=== PATIENT | female | born 1945 | race Caucasian/White ===

== ENCOUNTER 2016-07-24 03:05 | Emergency (ER) | payer MEDICARE ==
[~2016-07-24] VITALS: Ht 165.1 cm; Wt 132.4 kg
[~2016-07-24 03:05] MED LIST: AMLO5TAB PO; CARV25TA28 PO; GLIM2TAB26 PO; METF-200 PO; PITA2TAB PO; TOLT4CAP12 PO; TRIA1CAP35 PO; [UNRECOGNIZED DRUG - CODE] PO
[2016-07-24 03:17] VITALS: TEMP 97.9; Ht 165.1 cm; Wt 132.4 kg
--- NOTE | 2016-07-24 03:31 | NUR ---
DR SCHULTZ INTO SEE PT AT THIS TIME.
[2016-07-24] MEDS ORDERED: LORAZEPAM 2 MG/ML INJECTION IV ONE (03:45)
--- NOTE | 2016-07-24 03:46 | ERPDOC ---
Departure Disposition Decision Date: Jul 24, 2016 Disposition Decision Time: 04:42 Disposition: 01 DISCHARGED HOME, SELF-CARE Impression Impression Impression: Primary Impression: Anxiety Additional Impression: Hypertension Hypertension type: essential hypertension Qualified Codes: I10 - Essential ( primary) hypertension Severity: Severe Condition: Improved Seen By: Physician only Referrals: VIRGINIA GREGORY DO (PCP) Patient Instructions: Anxiety (ED), Hypertension (ED) Problems/Meds/Labs Reviewed?: Yes Medications reviewed and manag: Yes Additional Instructions: Take your routine medications as prescribed Call Dr. Gregory's office later today Follow up care ordered?: Yes Mental Status: Alert HPI - General Medical General Chief Complaint: Hypertension Stated Complaint: H BP Time Seen by Provider: 03:19 Source: patient, family Exam Limitations: no limitations HPI - General Medical Initial Comments For the past 24-36 hours the patient has felt generalized nervousness and multiple somatic complaints including elevated blood pressure that she associates with her anxiety attacks in the past. Patient has not had problems with her anxiety for over a year, but states this is the way she felt when they' ve really flared up in the past. Occurred At: home Onset: Gradual Duration: 12-24 hrs Severity: moderate Associated Symptoms: malaise, DENIES: chest pain, cough, diaphoresis, fever/ chills, headaches, loss of appetite, nausea/vomiting, rash, seizure, shortness of breath, syncope, weakness Hx of Similar Symptoms: Yes Allergies: Coded Allergies: No Known Allergies (Unverified , 07/24/16) Past History Past Medical History Metabolic: hypertension Psychological: anxiety Surgical History Denies Surgeries Social History Smoking Status: Never smoker Does patient use chewing tobac: No Second Hand Exposure: No Substance Use Type: does not use Alcohol Intake: none Record Review Pertinent history updated: Yes Review of Systems Constitutional Constitutional: DENIES: appetite decrease, appetite increase, chills, dizziness , fever, weakness ENMT Ears: DENIES: pain Hearing: DENIES: hearing loss, tinnitus Balance: DENIES: vertigo Sinuses: congestion, rhinorrhea Mouth/Throat: DENIES: change in swallowing, change in voice, hoarsness, painful swallowing, sore throat Cardiovascular Cardiac: DENIES: chest pain, dyspnea on exertion Rhythm/Rate: DENIES: irregular beat, palpitations, tachycardia Vascular: DENIES: pedal edema Pulmonary Respiratory: DENIES: cough, dyspnea, pleuritic chest pain GI Upper Abdomen: DENIES: dysphagia, heartburn/indigestion, nausea, pain, vomiting Lower Abdomen: DENIES: blood in stool, constipation, diarrhea, pain General: DENIES: burning, dysuria, frequency, pain, urgency Musculoskeletal General: DENIES: cramps, joint pain, joint swelling, pain, weakness Integumentary Skin: DENIES: rash, sores Neurological General: DENIES: headache, numbness, tingling, vertigo, weakness Psychiatric Psychiatric: anxiety, nervousness Physical Exam General General Nourishment: well nourished, well developed, appears stated age, no acute distress General Body Habitus: well groomed Vitals and Pain Weight: Kilograms: Height (feet): Height (inches): Triage Pain Scale: RN VS reviewed by Provider: Yes Comments Patient appears moderately anxious, with mild flight of ideas Normal Exams: Head: Normocephalic w/o trauma Eyes: Pupils are PERRLA w/ EOMI, No scleral icterus, irritation, or foreign bodies noted ENMT: No facial trauma, nasal exudates, pharyngeal erythema, or exudates are noted Neck: Full range of motion, without adenopathy, JVD, bruits or thyromegaly Chest/Resp: Clear all huber, with good airflow, and symmetry bilaterally CV: Regular rate and rhythm, without murmur or gallop, Pulses 2+ all extremities, capillary refill, <2 seconds all ext., no pedal edema noted Abdomen: Bowel sounds positive, soft, non-tender, non-distended, no hepatosplenomegaly, masses or bruits noted Lymphatic: No lymphadenopathy, or lymphedema noted Musculoskeletal: No tenderness, or deformity noted, good range of motion, all extremities Integumentary: No rashes, hives, or bruising noted, hair and nails, without abnormality Neurologic: Patient is alert, and oriented, cranial nerves, motor/sensory/ cerebellar, exams w/o gross deficits, to observation Psychiatric: Patient exhibits, appropriate attention, emotion and affect Progress Results/Orders Orders Procedure Category Date Status Time Iv Lock (Ed Only) EDM 07/24/16 Transmitted 03:34 Cbc W/Auto LAB 07/24/16 Complete Diff-Reflex Manual Cmp - Comprehensive LAB 07/24/16 Complete Metabolic Lorazepam (Ativan) PHA 07/24/16 Complete 03:45 Lab Results Laboratory Tests Test 07/24/16 03:56 White Blood Count 7.7T/MM3 Red Blood Count 4.55M/MM3 Hemoglobin 13.9GM/DL Hematocrit 42.6% Mean Corpuscular Volume 93.6UM3 Mean Corpuscular Hemoglobin 30.5UUG Mean Corpuscular Hemoglobin Concent 32.6GM/DL RDW Standard Deviation 42.8FL Platelet Count 188T/MM3 Mean Platelet Volume 10.6UM3 Immature Granulocyte % (Auto) 0.1% Neutrophils (%) (Auto) 61.6% Lymphocytes (%) (Auto) 29.2% Monocytes (%) (Auto) 5.4% Eosinophils (%) (Auto) 3.4% Basophils (%) (Auto) 0.3% Absolute Immature Granulocyte (auto 0.01T/MM3 Absolute Neutrophils (auto) 4.7T/MM3 Absolute Lymphocytes (auto) 2.2T/MM3 Absolute Monocytes (auto) 0.4T/MM3 Absolute Eosinophils (auto) 0.3T/MM3 Absolute Basophils (auto) 0.0T/MM3 Turbidity < 20 Sodium Level 144MEQ/L Potassium Level 4.2MEQ/L Chloride Level 103MEQ/L Carbon Dioxide Level 25MEQ/L Anion Gap 16MEQ/L Blood Urea Nitrogen 24.0MG/DL Creatinine 0.9MG/DL Glomerular Filtration Rate Calc 62 BUN/Creatinine Ratio 27RATIO Glucose Level 176MG/DL Calculated Osmolality 285MOSM/KG Calcium Level 9.7MG/DL Total Bilirubin 0.70MG/DL Icterus Index < 2 Aspartate Amino Transf (AST/SGOT) 28U/L Alanine Aminotransferase (ALT/SGPT) 38U/L Alkaline Phosphatase 83U/L Total Protein 7.4G/DL Albumin 4.2G/DL Globulin 3.2G/DL Albumin/Globulin Ratio 1.3RATIO Chemistry Specimen Hemolysis < 15 Medications Current ED Medications Lorazepam (Ativan) 1 mg O ONCE IV Last administered on 07/24/16t 04:05; Start 07/24/16 at 03:45; Stop 07/24/16 at 03:46; Status DC Progress Progress Initial blood pressure was elevated Patient given Ativan 1 mg IV - to relief of anxiety CBC - n CMP - n Subsequent blood pressures improving, however the patient's systolic blood pressure was still elevated at 203 on dismissal. Patient is going to take one additional Coreg at home, and called Dr. Gregory later today for recheck RENEE SCHULTZ MD Jul 24, 2016 03:46
--- NOTE | 2016-07-24 03:52 | NUR ---
LAB AT BEDSIDE FOR BLOOD DRAW.
[2016-07-24 04:06] LABS: BASOPHILS % (AUTO) 0.3 % (0-2); EOSINOPHILS # (AUTO) 0.3 T/MM3 (0-0.5); EOSINOPHILS % (AUTO) 3.4 % (0-4); HCT - HEMATOCRIT 42.6 % (36-46); HGB - HEMOGLOBIN 13.9 GM/DL (12-16); IMMATURE GRANULOCYTE # (AUTO) 0.01 T/MM3 (0.00-0.03); IMMATURE GRANULOCYTE % (AUTO) 0.1 % (0.0-0.5); LYMPHOCYTES # (AUTO) 2.2 T/MM3 (1-4.8); LYMPHOCYTES % (AUTO) 29.2 % (23-45); MEAN CORPUSCULAR HGB 30.5 UUG (26-34); MEAN CORPUSCULAR HGB CONC(MCHC 32.6 GM/DL (31-37); MEAN CORPUSCULAR VOLUME 93.6 UM3 (80-100); MEAN PLATELET VOLUME 10.6 UM3 (9.4-12.4); MONOCYTES # (AUTO) 0.4 T/MM3 (0-0.8); MONOCYTES % (AUTO) 5.4 % (0-9.0); NEUTROPHILS #(AUTO)-ABSOLUTE 4.7 T/MM3 (1.8-7.7); NEUTROPHILS % (AUTO) 61.6 % (33-66); RED BLOOD COUNT 4.55 M/MM3 (4.00-5.20); WBC - WHITE BLOOD COUNT 7.7 T/MM3 (4.5-11.0)
[2016-07-24 04:15] LABS: ALBUMIN 4.2 G/DL (3.5-5.0); ALBUMIN/GLOBULIN RATIO 1.3 RATIO (1.1-2.2); ALKALINE PHOSPHATASE 83 U/L (38-126); ALT (SGPT) 38 U/L (9-52); ANION GAP 16 MEQ/L (5-15); AST (SGOT) 28 U/L (14-36); BUN/CREATININE RATIO 27 RATIO (6-26); CALCIUM 9.7 MG/DL (8.4-10.2); CHLORIDE 103 MEQ/L (98-107); CO2 - CARBON DIOXIDE 25 MEQ/L (22-30); CREATININE 0.9 MG/DL (0.7-1.2); GLOMERULAR FILTRATION RATE 62; GLUCOSE 176 MG/DL (65-110); POTASSIUM 4.2 MEQ/L (3.6-5); SODIUM 144 MEQ/L (134-144); TOTAL PROTEIN 7.4 G/DL (6.3-8.2)
--- NOTE | 2016-07-24 04:40 | NUR ---
DR SCHULTZ AT BEDSIDE TO CHECK ON PT. PLAN FOR DISMISSAL.
[2016-07-24 05:07] VITALS: BP 177/76; PULSE 60; RESP 16; O2SAT 91
--- NOTE | 2016-07-24 05:07 | NUR ---
DISMISSAL INSTRUCTIONS GIVEN/REVIEWED WITH PT AND SISTER. VERBALIZE UNDERSTANDING. PT LEAVES DEPT AMBULATORY UPON DISMISSAL.
== END 2016-07-24 05:07 | disposition home or self-care (01) ==
LOC: ED 03:05
DX: I10 Essential (primary) hypertension (principal); R53.81 Other malaise; F41.9 Anxiety disorder, unspecified
CPT/HCPCS: 36415; 80053; 85025; 96374; 99283; J2060